=== PATIENT | female | born 1985 | race Caucasian/White ===

== ENCOUNTER 2017-04-03 01:47 | Emergency (ER) | payer OTHER ==
[2017-04-03 02:39] LABS: BASOPHIL 0.3 % (0-2); EOSINOPHIL 1.5 % (0-5); HCT 20.8 % (37.0-47.0); LYMPHOCYTE 12.3 % (15-48); MCH 20.1 pg (25.0-31.0); MCHC 29.3 g/dL (32.0-36.0); MCV 68.6 fL (78.0-100.0); MONOCYTE 5.3 % (0-12); MPV 9.9 fL (6.0-9.5); NEUTROPHIL 80.6 % (41-80); PLT 605 K/uL (150-400); RBC 3.03 M/uL (4.20-5.40); RDW 21.1 % (11.5-14.0); WBC 15.6 K/uL (4.0-10.5)
[2017-04-03 02:51] LABS: INR 1.57 (0.9-1.2); PROTHROMBIN TIME 18.3 SECONDS (11.7-14.0)
[2017-04-03 02:52] LABS: PTT 45.2 SECONDS (23.2-31.4)
[2017-04-03 02:52] LABS: BILIRUBIN NEGATIVE (NEGATIVE); BLOOD NEGATIVE Ery/uL (NEGATIVE); CLARITY CLEAR (CLEAR); COLOR YELLOW (YELLOW); GLUCOSE (U) NORMAL (NORMAL); KETONE (U) NEGATIVE (NEGATIVE); LEUKOCYTES NEGATIVE Leu/uL (NEGATIVE); NITRITE NEGATIVE (NEGATIVE); PROTEIN 1+ mg/dL (NEGATIVE)
[2017-04-03 02:53] LABS: D-DIMER 1.75 ug/mLFEU (0.00-0.41)
[2017-04-03 02:54] LABS: HGB 6.1 g/dl (12.5-16.0)
[2017-04-03 02:57] LABS: ALBUMIN 3.4 g/dL (3.5-5.0); BILIRUBIN - TOTAL 0.4 mg/dL (0.1-1.0); CREATININE 1.2 mg/dL (0.5-1.0); GLOBULIN (CALCULATION) 3.6 g/dL (2.2-4.2); MAGNESIUM 1.75 mg/dL (1.40-2.10); POTASSIUM 3.3 mmol/L (3.5-5.1)
[2017-04-03 02:58] LABS: BACTERIA TRACE; MUCOUS LARGE
[2017-04-03 03:13] LABS: CKMB 2.04 ng/mL (0.97-4.94); MYOGLOBIN 69 ng/mL (26-65); PRO-BNP 1599 pg/mL (0-125); TROPONIN T < 0.010 ng/mL
[2017-04-03 05:00] LABS: LACTIC ACID 1.5 mmol/L (0.5-2.2)
== END 2017-04-03 10:34 | disposition other institution (70) ==
LOC: FER 01:47
PROVIDERS: Emergency Medicine Emergency Medical Services
DX: I11.0 Hypertensive heart disease with heart failure (principal); I50.1 Left ventricular failure, unspecified; J96.91 Respiratory failure, unspecified with hypoxia; J45.909 Unspecified asthma, uncomplicated; R82.90 Unspecified abnormal findings in urine; Z79.01 Long term (current) use of anticoagulants; Z88.5 Allergy status to narcotic agent; Z88.1 Allergy status to other antibiotic agents; Z91.040 Latex allergy status
CPT/HCPCS: 36415; 36430; 36600; 71010; 71275; 80053; 81001; 82550; 82553; 82803; 83605; 83735; 83874; 83880; 84145; 84484; 85025; 85379; 85610; 85730; 86850; 86900; 86901; 86922; 87040; 87088; 93005; 94640; 94660; 96365; 96375; J0456; J1170; J2405; P9016; Q9967